=== PATIENT | male | born 1945 | race Caucasian/White ===

== ENCOUNTER 2020-08-05 10:19 | Outpatient (REF) | payer MEDICARE, SELFPAY ==
--- NOTE | 2020-08-05 | US_ITS ---
EXAMINATION: US EXTRACRANIAL CAROTID DUPLEX, BILATERAL CLINICAL INFORMATION: History of right carotid endarterectomy 4 years ago. History of hypertension and hyperlipidemia. COMPARISON: July 30, 2019 and July 18, 2018 TECHNIQUE: Real-time ultrasound and Doppler techniques (integrating B-mode 2-D vascular images, Doppler spectral analysis and color-flow Doppler imaging) were utilized to interrogate the extracranial carotid arteries, the vertebral arteries and proximal subclavian arteries bilaterally. The degree of stenosis is determined by criteria similar to NASCET. FINDINGS: Right Side: 1. There is bulky, moderate atherosclerotic plaque seen in the bifurcation/proximal ICA region. 2. The common carotid artery PSV proximally is 82 cm/s and distally 109 cm/s. 3. The proximal internal carotid artery velocities are 166 cm/s systolic and 28 cm/s diastolic. 4. The proximal external carotid artery PSV is 187 cm/s. 5. The vertebral artery shows antegrade flow. 6. The subclavian artery waveforms are normal. Left Side: 1. There is mild to moderate atherosclerotic plaque seen in the bifurcation/proximal ICA region. 2. The common carotid artery PSV proximally is 138 cm/s and distally 93 cm/s. 3. The proximal internal carotid artery velocities are 77 cm/s systolic and 50 cm/s diastolic. 4. The proximal external carotid artery PSV is 114 cm/s. 5. The vertebral artery shows antegrade flow. 6. The subclavian artery waveforms are normal. There are few, prominent, morphologically normal-appearing cervical lymph nodes identified. US/US carotid duplex BI IMPRESSION: 1. RIGHT: Moderate, hemodynamically significant stenosis of the proximal right internal carotid artery corresponding to a 50-79% stenosis by velocity criteria. 2. LEFT: Minimal, non-hemodynamically significant stenosis of the proximal left internal carotid artery corresponding to a 0-49% stenosis by velocity criteria. 3. Previously, the right internal carotid artery demonstrated minimal, nonhemodynamically significant stenosis corresponding to a 0-49% stenosis by velocity criteria.
== END 2020-08-05 10:20 | disposition home or self-care (01) ==
LOC: HO.US 10:19
PROVIDERS: PCP Internal Medicine; Visit Provider Surgery Vascular Surgery
DX: I65.23 Occlusion and stenosis of bilateral carotid arteries (principal)
CPT/HCPCS: 93880

== ENCOUNTER 2020-08-12 13:05 | Outpatient (REF) | payer MEDICARE, SELFPAY ==
[2020-08-12 15:46] LABS: PSA,Total (Free>4and<10) 2.66 ng/mL (0.00-4.00)
== END 2020-08-12 13:06 | disposition home or self-care (01) ==
LOC: HO.LAB 13:05
PROVIDERS: PCP Internal Medicine; Referring Provider Urology; Visit Provider Surgery Vascular Surgery
DX: Z87.898 Personal history of other specified conditions (principal); I65.23 Occlusion and stenosis of bilateral carotid arteries
CPT/HCPCS: 84153; 99212

== ENCOUNTER → 2020-11-11 09:36 | Outpatient (BNVA) | payer MEDICARE, SELFPAY | PROVIDERS: PCP Internal Medicine; Visit Provider Urology | DX: N40.0 Benign prostatic hyperplasia without lower urinary tract symptoms (principal); Z80.42 Family history of malignant neoplasm of prostate; Z87.898 Personal history of other specified conditions | CPT/HCPCS: Q3014 ==

== ENCOUNTER 2021-08-03 13:25 | Outpatient (REF) | payer MEDICARE, SELFPAY ==
--- NOTE | ~2021-08-03 | US_ITS ---
EXAMINATION: US EXTRACRANIAL CAROTID DUPLEX, BILATERAL CLINICAL INFORMATION: Carotid stenosis with history of right carotid endarterectomy 4 years ago. Hypertension and hyperlipidemia. COMPARISON: 08/05/2020. TECHNIQUE: Real-time ultrasound and Doppler techniques (integrating B-mode 2-D vascular images, Doppler spectral analysis and color-flow Doppler imaging) were utilized to interrogate the extracranial carotid arteries, the vertebral arteries and proximal subclavian arteries bilaterally. The degree of stenosis is determined by criteria similar to NASCET. FINDINGS: Right Side: 1. There is minimal atherosclerotic plaque seen in the bifurcation/proximal ICA region. Endarterectomy changes present. 2. The common carotid artery PSV proximally is 119 cm/s and distally 132 cm/s. 3. The proximal internal carotid artery velocities are 112 cm/s systolic and 28 cm/s diastolic. 4. The proximal external carotid artery PSV is 194 cm/s. 5. The vertebral artery shows antegrade flow. 6. The subclavian artery waveforms are normal. Left Side: 1. There is mild atherosclerotic plaque seen in the bifurcation/proximal ICA region. 2. The common carotid artery PSV proximally is 130 cm/s and distally 101 cm/s. 3. The proximal internal carotid artery velocities are 59 cm/s systolic and 19 cm/s diastolic. 4. The proximal external carotid artery PSV is 102 cm/s. 5. The vertebral artery shows antegrade flow. 6. The subclavian artery waveforms are normal. There are mildly prominent bilateral cervical lymph nodes which appear similar to the prior study. These have morphologically normal-appearing fatty latasha. US/US carotid duplex BI IMPRESSION: 1. RIGHT: Minimal, non-hemodynamically significant stenosis of the proximal right internal carotid artery corresponding to a 0-49% stenosis by velocity criteria. 2. LEFT: Minimal, non-hemodynamically significant stenosis of the proximal left internal carotid artery corresponding to a 0-49% stenosis by velocity criteria. 3. On the prior study, the right-sided disease was in the moderate 50-79% category by velocity criteria but now measures in the 0-49% category by velocity criteria..
== END 2021-08-03 13:26 | disposition home or self-care (01) ==
LOC: HO.US 13:25
PROVIDERS: PCP Internal Medicine; Visit Provider Surgery Vascular Surgery
DX: I65.23 Occlusion and stenosis of bilateral carotid arteries (principal)
CPT/HCPCS: 93880

== ENCOUNTER → 2021-08-11 10:51 | Outpatient (BNVA) | payer MEDICARE, SELFPAY | PROVIDERS: PCP Internal Medicine; Visit Provider Surgery Vascular Surgery | DX: I65.23 Occlusion and stenosis of bilateral carotid arteries (principal); G30.0 Alzheimer's disease with early onset; F02.80 Dementia in other diseases classified elsewhere, unspecified severity, without behavioral disturbance, psychotic disturbance, mood disturbance, and anxiety; R97.20 Elevated prostate specific antigen [PSA]; I10 Essential (primary) hypertension; E78.00 Pure hypercholesterolemia, unspecified; Z98.890 Other specified postprocedural states; Z95.5 Presence of coronary angioplasty implant and graft; Z95.1 Presence of aortocoronary bypass graft; Z88.6 Allergy status to analgesic agent | CPT/HCPCS: 99212 ==

== ENCOUNTER → 2021-11-11 10:40 | Outpatient (BNVA) | payer MEDICARE, SELFPAY | PROVIDERS: PCP Internal Medicine; Visit Provider Urology | DX: N40.0 Benign prostatic hyperplasia without lower urinary tract symptoms (principal); Z80.42 Family history of malignant neoplasm of prostate | CPT/HCPCS: Q3014 ==

== ENCOUNTER → 2022-05-10 08:12 | Outpatient (BNVA) | payer MEDICARE, SELFPAY | PROVIDERS: PCP Internal Medicine; Visit Provider Urology | DX: N40.0 Benign prostatic hyperplasia without lower urinary tract symptoms (principal); Z87.898 Personal history of other specified conditions | CPT/HCPCS: Q3014 ==

== ENCOUNTER 2022-08-10 | Outpatient (REF) | payer MEDICARE, SELFPAY ==
--- NOTE | ~2022-08-10 | US_ITS ---
EXAMINATION: US EXTRACRANIAL CAROTID DUPLEX, BILATERAL CLINICAL INFORMATION: Carotid stenosis, status post right endarterectomy COMPARISON: Carotid duplex on 08/03/2021 TECHNIQUE: Real-time ultrasound and Doppler techniques (integrating B-mode 2-D vascular images, Doppler spectral analysis and color-flow Doppler imaging) were utilized to interrogate the extracranial carotid arteries, the vertebral arteries and proximal subclavian arteries bilaterally. The degree of stenosis is determined by criteria similar to NASCET. FINDINGS: Right Side: 1. There is mild atherosclerotic plaque seen in the bifurcation/proximal ICA region. 2. The common carotid artery PSV proximally is 112 cm/s and distally 97 cm/s. 3. The proximal internal carotid artery velocities are 55 cm/s systolic and 15 cm/s diastolic. 4. The proximal external carotid artery PSV is 183 cm/s. 5. The vertebral artery shows antegrade flow. 6. The subclavian artery waveforms are normal. Left Side: 1. There is mild atherosclerotic plaque seen in the bifurcation/proximal ICA region. 2. The common carotid artery PSV proximally is 109 cm/s and distally 115 cm/s. 3. The proximal internal carotid artery velocities are 79 cm/s systolic and 28 cm/s diastolic. 4. The proximal external carotid artery PSV is 122 cm/s. 5. The vertebral artery shows antegrade flow. 6. The subclavian artery waveforms are normal. US/US carotid duplex BI IMPRESSION: 1. RIGHT: Minimal, non-hemodynamically significant stenosis of the proximal right internal carotid artery corresponding to a 0-49% stenosis by velocity criteria. 2. LEFT: Minimal, non-hemodynamically significant stenosis of the proximal left internal carotid artery corresponding to a 0-49% stenosis by velocity criteria. 3. There is no change in the category severity of disease when compared to the previous study dated 08/03/2021.
[2022-08-10 15:24] LABS: Appearance Urine Clear; Color Urine Yellow; Glucose Urine UA Negative (Negative); Leukocyte Esterase Urine Negative (Negative); Nitrite Urine Negative (Negative); Urine Blood Negative (Negative); Urine Ketones Negative (Negative); Urine Protein Negative (Neg-Trace)
[2022-08-10 15:36] LABS: Bacteria Urine None Seen (None Seen); Hyaline Casts Urine 0-2 /LPF (0-2); RBC Urine 0-2 /HPF (0-2); Squamous Epithelial Cell Urine 0-2 /HPF (0-2); WBC Urine 0-5 /HPF (0-5)
== END 2022-08-10 00:01 | disposition home or self-care (01) ==
LOC: HO.US
PROVIDERS: Absent Provider Urology; Visit Provider Surgery Vascular Surgery
DX: I65.23 Occlusion and stenosis of bilateral carotid arteries (principal); N40.0 Benign prostatic hyperplasia without lower urinary tract symptoms
CPT/HCPCS: 81001; 87086; 93880

== ENCOUNTER → 2022-09-19 13:12 | Outpatient (BNVA) | payer MEDICARE, SELFPAY | PROVIDERS: PCP Internal Medicine; Visit Provider Surgery Vascular Surgery | DX: I65.23 Occlusion and stenosis of bilateral carotid arteries (principal); I25.10 Atherosclerotic heart disease of native coronary artery without angina pectoris; I10 Essential (primary) hypertension; Z95.1 Presence of aortocoronary bypass graft; Z95.5 Presence of coronary angioplasty implant and graft; M54.50 Low back pain, unspecified; Z98.890 Other specified postprocedural states | CPT/HCPCS: 99212 ==

== ENCOUNTER 2023-05-10 10:41 | Outpatient (AMB) | payer MEDICARE, SELFPAY ==
--- NOTE | 2023-05-10 10:49 | MHC.OFFVIS ---
Intake Intake Visit Reasons: 1Y PSA(SET) Intake Note: Patient is present for Follow Up PSA/PVR Urology Med: Finasteride, Tamsulosin Antibiotic Allergy:none Blood Thinner: None PVR: 40ML Allergies acetaminophen [Percocet] Allergy (Unknown, Verified 05/10/23 10:58) acute urinary retention oxycodone [Percocet] Allergy (Unknown, Verified 05/10/23 10:58) acute urinary retention HPI HPI Comments History of Present Illness Details Moshe is a pleasant . He is a patient of Dr. Garcia. He is seen for following urologic conditions - lower urinary tract symptoms PSA remains low Appropriate voiding parameters Twelve month follow-up Lower urinary tract symptoms Followed with mild lower urinary tract symptoms Family history prostate cancer Prior PSA trend around 2.5-3 Prior prostate biopsy 2014 PSA 3.7 NAD PSA - 11/05 3.4, 04/05 1.9, 05/06 0.9 Therapeutic plan continue finasteride - every other day PFSH Medical History BPH (benign prostatic hyperplasia) BPH (benign prostatic hyperplasia) Coronary artery arteriosclerosis Early onset Alzheimer's dementia Elevated PSA Family history of prostate cancer H/O urinary retention History of elevated PSA Hypercholesteremia Hypertension Surgical History Compression fracture Femoral artery aneurysm H/O cervical discectomy H/O prostate biopsy History of CEA (carotid endarterectomy) (~2015) History of transurethral resection of prostate Hx of CABG Hx of colonoscopy Hx of laminectomy S/P angioplasty with stent Family History Father No problems noted. Mother No problems noted. Brother Cancer Brother No problems noted. Son No problems noted. Son No problems noted. Review of Systems Const Denies chills and Denies fever(s) Card Reports no additional complaints and Denies syncope Resp Denies cough GI Denies abdominal pain and Denies heartburn Reports as per HPI and Denies change in libido Neuro Denies syncope Psych Denies change in libido Endo Denies change in libido Physical Exam Const General: cooperative, healthy appearing, comfortable and no acute distress Orientation/consciousness: patient oriented x3 HEENT Face and sinus: Yes normal facial exam Mouth: moist mucous membranes Neck Neck: Yes normal visual inspection, Yes full ROM and Yes trachea midline Chest Chest palpation & inspection: normal inspection of the chest Resp Effort & Inspection: normal respiratory effort, able to speak in complete sentences and no respiratory distress GI Inspection: Yes normal to inspection Back/Spine/Pelvis Cervical Spine: normal cervical lordosis Thoracic/Lumbar Spine: thoracic and lumbar spine normal to inspection Skin General skin exam: no rashes or lesions noted Neuro General: patient oriented x3, gait normal, tone normal and moves all extremities Extrem General: Yes normal to inspection and Yes capillary refill normal Office Procedures Post Void Residual Post Residual Void Post Void Residual (PVR): [id number] Void Residual by ultrasound Results AMB Urinalysis, Automated UA Leukoctes 0 Dev/uL Last Edit by Yamel Goyal [facility] on 05/10/23 11:11 UA Nitrite Negative Last Edit by Yamel Goyal [facility] on 05/10/23 11:11 UA Urobilinogen 0.2 mg/dL Last Edit by Yamel Goyal [facility] on 05/10/23 11:11 UA Protein 0 mg/dL Last Edit by Yamel Goyal [facility] on 05/10/23 11:11 UA pH 5.0 Last Edit by Yamel Goyal [facility] on 05/10/23 11:11 UA Blood 0 Nathan/uL Last Edit by Yamel Goyal [facility] on 05/10/23 11:11 UA Specific Mcdowell 1.025 Last Edit by Yamel Goyal [facility] on 05/10/23 11:11 UA Ketone Negative Last Edit by Yamel Goyal [facility] on 05/10/23 11:11 UA Bilirubin 0 mg/dL Last Edit by Yamel Goyal [facility] on 05/10/23 11:11 UA Glucose 0 mg/dL Last Edit by Yamel Goyal [facility] on 05/10/23 11:11 Results Reviewed Results Reviewed: Laboratory Last Values Urine pH (Auto) 5.0 05/10/23 10:59 Specific Mcdowell (Auto) 1.025 05/10/23 10:59 Urine Protein (Auto) 0 mg/dL 05/10/23 10:59 Glucose (UA)(Auto) 0 mg/dL 05/10/23 10:59 Urine Ketones (Auto) Negative 05/10/23 10:59 Urine Blood (Auto) 0 Nathan/uL 05/10/23 10:59 Urine Nitrite (Auto) Negative 05/10/23 10:59 Urine Bilirubin (Auto) 0 mg/dL 05/10/23 10:59 Urine Urobilinogen (Auto) 0.2 mg/dL 05/10/23 10:59 Leukocyte Esterase (Auto) 0 Dev/uL 05/10/23 10:59 Assessment & Plan Assessment & Plan (1) BPH (benign prostatic hyperplasia): Code(s): N40.0 - Benign prostatic hyperplasia without lower urinary tract symptoms Plan 12 month follow-up Orders: Orders AMB Urinalysis Automated Today Z13.9 - Encounter for screening, unspecified AMB Post Void Residual by ultrasound Today N40.0 - Benign prostatic hyperplasia without lower urinary tract symptoms Patient Instructions: Imaging studies, laboratory and physical exam results were discussed and reviewed in detail. No major barriers to patient understanding were identified. An opportunity to ask questions regarding the treatment plan was provided. All questions were answered. The patient expressed understanding and agreement with the above treatment plan. The patient is aware they should contact our office by phone for worsening of their current condition or the appearance of new urologic symptoms. Compliance is encouraged with any medications and followup testing that is ordered. It is a privilege to participate in the urologic care of your patient. If you have any questions or concerns regarding treatment for the above conditions, or other urologic issues, please do not hesitate to contact me. The office telephone contact is [phone]. This note is constructed using voice recognition software. While every effort has been made to ensure accuracy lotteries agent errors may have been included. Yours sincerely, Dr Alli Leigh MD, [facility] - Urology Providers of Expert, Compassionate Care for the Genitourinary System Coding Level of Care Code Est Pt Level 3 (61143) Diagnoses BPH (benign prostatic hyperplasia) N40.0 CPT Codes Post Residual Void - PVR CPT Code: 95743-Kmbf Void Residual by ultrasound ([id number])
== END 2023-05-10 11:29 | disposition home or self-care (01) ==
PROVIDERS: Visit Provider Urology
DX: N40.0 Benign prostatic hyperplasia without lower urinary tract symptoms (principal)
CPT/HCPCS: 99213

== ENCOUNTER → 2023-05-10 10:41 | Outpatient (BNVA) | payer MEDICARE, SELFPAY | PROVIDERS: Visit Provider Urology | DX: N40.0 Benign prostatic hyperplasia without lower urinary tract symptoms (principal) | CPT/HCPCS: 51798; 99212 ==

== ENCOUNTER 2023-09-17 10:22 | Outpatient (REF) | payer MEDICARE, SELFPAY ==
--- NOTE | ~2023-09-17 | US_ITS ---
EXAMINATION: US EXTRACRANIAL CAROTID DUPLEX, BILATERAL CLINICAL INFORMATION: Carotid stenosis, status post right carotid endarterectomy COMPARISON: 08/10/2022 TECHNIQUE: Real-time ultrasound and Doppler techniques (integrating B-mode 2-D vascular images, Doppler spectral analysis and color-flow Doppler imaging) were utilized to interrogate the extracranial carotid arteries, the vertebral arteries and proximal subclavian arteries bilaterally. The degree of stenosis is determined by criteria similar to NASCET. FINDINGS: Right Side: 1. Postsurgical changes consistent with prior carotid endarterectomy. There is minimal atherosclerotic plaque seen in the bifurcation/proximal ICA region. 2. The common carotid artery PSV proximally is 85 cm/s and distally 67 cm/s. 3. The proximal internal carotid artery velocities are 47 cm/s systolic and 13 cm/s diastolic. 4. The proximal external carotid artery PSV is 162 cm/s. 5. The vertebral artery shows antegrade flow. 6. The subclavian artery waveforms are normal with mildly elevated velocity measuring 226 cm/s. Left Side: 1. There is mild to moderate atherosclerotic plaque seen in the bifurcation/proximal ICA region. 2. The common carotid artery PSV proximally is 132 cm/s and distally 124 cm/s. 3. The proximal internal carotid artery velocities are 55 cm/s systolic and 18 cm/s diastolic. 4. The proximal external carotid artery PSV is 125 cm/s. 5. The vertebral artery shows antegrade flow. 6. The subclavian artery waveforms are normal with elevated velocity measuring 248 cm/s. US/US carotid duplex BI IMPRESSION: 1. RIGHT: Minimal, non-hemodynamically significant stenosis of the proximal right internal carotid artery corresponding to a 0-49% stenosis by velocity criteria. Stable postsurgical changes consistent with prior carotid endarterectomy 2. LEFT: Minimal, non-hemodynamically significant stenosis of the proximal left internal carotid artery corresponding to a 0-49% stenosis by velocity criteria. 3. There is no change in the category severity of disease when compared to the previous study dated 08/10/2022 4. Elevated velocity seen in the bilateral subclavian arteries without reversal flow in the vertebral arteries. Cannot exclude underlying mild stenoses.
== END 2023-09-17 10:23 | disposition home or self-care (01) ==
LOC: HO.US 10:22
PROVIDERS: PCP Internal Medicine; Visit Provider Surgery Vascular Surgery
DX: I65.23 Occlusion and stenosis of bilateral carotid arteries (principal)
CPT/HCPCS: 93880

== ENCOUNTER 2023-10-11 14:32 | Outpatient (AMB) | payer MEDICARE, SELFPAY ==
--- NOTE | 2023-10-11 14:31 | MHC.OFFVIS ---
Intake Vital Signs 10/11/23 14:32 Height 5 ft 10 in Weight 185 lb BMI 26.5 BP 122/74 Blood Pressure Location Lt brachial Position Sitting Pulse 57 Pulse Source Pulse Oximeter Pulse Oximetry (%) 97 Oxygen Delivery Method Room Air Intake Visit Reasons: FU carotid US Intake Note: Pt presents to the office today for a F/U carotid US. Pt states he has been feeling okay. Pt states he gets occasional chest pain and is tired most of the time. Allergies acetaminophen [Percocet] Allergy (Unknown, Verified 10/11/23 14:37) acute urinary retention oxycodone [Percocet] Allergy (Unknown, Verified 10/11/23 14:37) acute urinary retention HPI FU carotid US HPI Details Very pleasant 77-year-old gentleman presents for routine surveillance regarding his carotids. He had undergone right carotid endarterectomy by me nearly 7 years ago at [facility]. He is asymptomatic in terms of his carotids. He continues to do fairly well but is now struggling a little bit with [employer] according to his . He does do large puzzles to keep himself active engaged. He appears to be doing fairly well otherwise. He now presents for follow-up with ultrasound testing. [facility] Medical History BPH (benign prostatic hyperplasia) History of elevated PSA Family history of prostate cancer Elevated PSA BPH (benign prostatic hyperplasia) H/O urinary retention Coronary artery arteriosclerosis Early onset Alzheimer's dementia Hypercholesteremia Hypertension Surgical History S/P angioplasty with stent Hx of colonoscopy Hx of CABG Femoral artery aneurysm Compression fracture Hx of laminectomy History of transurethral resection of prostate H/O cervical discectomy History of CEA (carotid endarterectomy) (~2015) H/O prostate biopsy Family History Father No problems noted. Mother No problems noted. Brother Cancer Brother No problems noted. Son No problems noted. Son No problems noted. Social History (Updated 10/11/23 @ 14:39 by Dyan Alvarez MA) Household Members: Spouse Housing: House Alcohol intake: current Alcohol intake frequency: holidays/special occasions only Alcohol type: beer and hard liquor Patient Tobacco Use Status: Former Tobacco user Use of substances other than those prescribed or required for medical reasons: No Review of Systems Const All systems reviewed & are unremarkable except as noted in HPI and below Reports no additional complaints ENT Reports Normal hearing present Card Denies chest pain, Denies chest pain at rest, Denies chest pain with activity and Denies pedal edema Resp Denies cough GI Denies abdominal pain Musc Denies abnormal gait, Denies muscle cramps and Denies radiating pain into limb Skin/Breast Denies skin ulcer and Denies wounds Neuro Reports Normal hearing present and Denies abnormal gait Psych Reports no additional complaints Physical Exam Vital Signs: Last Vital Signs Pulse 57 10/11/23 14:32 BP 122/74 10/11/23 14:32 Pulse Ox 97 10/11/23 14:32 Oxygen Delivery Method Room Air 10/11/23 14:32 BMI result Body Mass Index 26.5 Const General: cooperative, healthy appearing and comfortable Orientation/consciousness: oriented to person, oriented to place and oriented to time HEENT Head: Yes normal to inspection Neck Neck: Yes normal visual inspection Carotids: no bruits Chest Chest palpation & inspection: normal inspection of the chest Resp Effort & Inspection: normal respiratory effort and able to speak in complete sentences Auscultation: clear to auscultation bilaterally, no crackles, no rales, no rhonchi and no wheezes Cardio Rate: regular rate Rhythm: regular rhythm Heart sounds: S1 normal heart sound present and S2 normal heart sound present Bruits: no carotid bruits Peripheral pulses: Peripheral pulses 2+ throughout GI Inspection: Yes normal to inspection Skin Wounds: no wounds Hair: normal Neuro General: oriented to person, oriented to place and oriented to time Cranial nerves: Yes CN's II-XII intact bilaterally and Yes Normal hearing present Cognition (Neuro): normal cognition Motor exam (neuro): 5/5 motor strength present throughout Extrem Other: venous exam: No significant superficial varicosities or spider telangiectasias, minimal edema General: No clubbing, No cyanosis and No edema Psych Appearance: grossly normal Mental Status: mental status grossly normal Speech and movement: Normal speech and movement present Results Reviewed Results Reviewed: Carotid testing dated 09/17/2023 demonstrates bilateral 0-49% stenosis. Written report and images were reviewed. Assessment & Plan Assessment & Plan (1) Carotid stenosis: Comment: July 2016 - right carotid endarterectomy by Dr. Medina at [facility] Code(s): I65.29 - Occlusion and stenosis of unspecified carotid artery Qualifiers: Laterality: bilateral Qualified Code(s): I65.23 - Occlusion and stenosis of bilateral carotid arteries Plan: In short patient has asymptomatic carotid disease. We have reviewed signs and symptoms of a stroke. We also discussed risk factor modification inclusive a healthy diet low in cholesterol. The patient will follow up with us with surveillance ultrasound of the carotids 1 year. Should there be any changes or signs or symptoms of a stroke we will be happy to see them back sooner. Thank you for allowing us to participate in this patient's care. If there are any questions or concerns please do not hesitate to contact us. Orders: Orders US carotid duplex BI 364 Days I65.23 - Occlusion and stenosis of bilateral carotid arteries Coding Level of Care Code Est Pt Level 4 (67227) Diagnoses Bilateral carotid artery stenosis I65.23 Laterality: bilateral
[2023-10-11 14:32] VITALS: BP 122/74; PULSE 57; O2SAT 97; BMI 26.5
== END 2023-10-11 15:17 | disposition home or self-care (01) ==
PROVIDERS: PCP Internal Medicine; Visit Provider Surgery Vascular Surgery
DX: I65.23 Occlusion and stenosis of bilateral carotid arteries (principal)
CPT/HCPCS: 99213

== ENCOUNTER → 2023-10-11 14:32 | Outpatient (BNVA) | payer MEDICARE, SELFPAY | PROVIDERS: PCP Internal Medicine; Visit Provider Surgery Vascular Surgery | DX: I65.23 Occlusion and stenosis of bilateral carotid arteries (principal) | CPT/HCPCS: 99212 ==

== ENCOUNTER 2024-04-25 13:59 | Outpatient (REF) | payer MEDICARE, SELFPAY ==
[2024-04-25 16:07] LABS: Prostate Specific Antigen 2.08 ng/mL (<0.05-4.0)
== END 2024-04-25 14:00 | disposition home or self-care (01) ==
LOC: HO.LAB 13:59
PROVIDERS: PCP Internal Medicine; Visit Provider Urology
DX: N40.1 Benign prostatic hyperplasia with lower urinary tract symptoms (principal); N13.8 Other obstructive and reflux uropathy; Z12.5 Encounter for screening for malignant neoplasm of prostate
CPT/HCPCS: 36415; 84153

== ENCOUNTER 2024-05-06 10:21 | Outpatient (AMB) | payer MEDICARE, SELFPAY ==
--- NOTE | 2024-05-06 10:59 | A.OFFVIS_ITS ---
Intake Visit Reasons: 1Y PSA/PVR(set) Intake Note: Patient is present for Follow Up PSA/PVR Urology Med: Finasteride, Tamsulosin Antibiotic Allergy:none Blood Thinner: None PVR: 40ML today's PVR:0ml's Allergies acetaminophen [Percocet] Allergy (Unknown, Verified 05/06/24 11:00) acute urinary retention oxycodone [Percocet] Allergy (Unknown, Verified 05/06/24 11:00) acute urinary retention Medication List - Last Reconciled 05/06/24 by Alli Leigh MD atorvastatin 80 mg PO DAILY finasteride 5 mg PO DAILY 90 days flu vacc [id number](65yr up)-PF mL IM hydrochlorothiazide 25 mg PO DAILY hydrochlorothiazide 12.5 mg PO DAILY lisinopril 40 mg PO DAILY nitroglycerin 0.4 mg sublingual ranolazine ER mg PO sertraline 100 mg PO DAILY sertraline 50 mg PO DAILY HPI Comments Details: Moshe is a pleasant . He is a patient of Dr. Garcia. He is seen for following urologic conditions - lower urinary tract symptoms Twelve month follow-up Accompanied by PSA slight recovery to 2.1 since on finasteride every other day Appropriate voiding parameters Lower urinary tract symptoms Followed with mild lower urinary tract symptoms Family history prostate cancer Prior PSA trend around 2.5-3 Prior prostate biopsy 2014 PSA 3.7 NAD PSA - 11/05 3.4, 04/05 1.9, 05/06 0.9, 05/07 2.1 Therapeutic plan continue finasteride - every other day [facility] Medical History BPH (benign prostatic hyperplasia) History of elevated PSA Family history of prostate cancer Elevated PSA BPH (benign prostatic hyperplasia) H/O urinary retention Coronary artery arteriosclerosis Early onset Alzheimer's dementia Hypercholesteremia Hypertension Surgical History S/P angioplasty with stent Hx of colonoscopy Hx of CABG Femoral artery aneurysm Compression fracture Hx of laminectomy History of transurethral resection of prostate H/O cervical discectomy History of CEA (carotid endarterectomy) (~2015) H/O prostate biopsy Family History Father No problems noted. Mother No problems noted. Brother Cancer Brother No problems noted. Son No problems noted. Son No problems noted. Social History (Updated 10/11/23 @ 14:39 by Dyan Alvarez CMA) Household Members: Spouse Housing: House Alcohol intake: current Alcohol intake frequency: holidays/special occasions only Alcohol type: beer and hard liquor Patient Tobacco Use Status: Former Tobacco user Review of Systems Const Denies chills and Denies fever(s) Card Reports no additional complaints and Denies syncope Resp Denies cough GI Denies abdominal pain and Denies heartburn Reports as per HPI and Denies change in libido Neuro Denies syncope Psych Denies change in libido Endo Denies change in libido Physical Exam Const General: cooperative, healthy appearing, comfortable and no acute distress Orientation/consciousness: patient oriented x3 HEENT Face and sinus: Yes normal facial exam Mouth: moist mucous membranes Neck Neck: Yes normal visual inspection, Yes full ROM and Yes trachea midline Chest Chest palpation & inspection: normal inspection of the chest Resp Effort & Inspection: normal respiratory effort, able to speak in complete sentences and no respiratory distress GI Inspection: Yes normal to inspection Back/Spine/Pelvis Cervical Spine: normal cervical lordosis Thoracic/Lumbar Spine: thoracic and lumbar spine normal to inspection Skin General skin exam: no rashes or lesions noted Neuro General: patient oriented x3, gait normal, tone normal and moves all extremities Extrem General: Yes normal to inspection and Yes capillary refill normal Office Procedures Post Void Residual Post Residual Void Post Void Residual (PVR): 0 [id number] Void Residual by ultrasound Results AMB Urinalysis, Automated UA Leukoctes 0 Dev/uL Last Edit by THERESA Caldera on 05/06/24 11:07 UA Nitrite Negative Last Edit by THERESA Caldera on 05/06/24 11:07 UA Urobilinogen 0.2 mg/dL Last Edit by THERESA Caldera on 05/06/24 11:0 7 UA Protein 0 mg/dL Last Edit by THERESA Caldera on 05/06/24 11:07 UA pH 5.0 Last Edit by THERESA Caldera on 05/06/24 11:07 UA Blood 0 Nathan/uL Last Edit by THERESA Caldera on 05/06/24 11:07 UA Specific [place] 1.020 Last Edit by THERESA Caldera on 05/06/24 11: 07 UA Ketone Negative Last Edit by THERESA Caldera on 05/06/24 11:07 UA Bilirubin 0 mg/dL Last Edit by THERESA Caldera on 05/06/24 11:07 UA Glucose 0 mg/dL Last Edit by THERESA Caldera on 05/06/24 11:07 Results Reviewed Results Reviewed: Laboratory Last Values Urine pH (Auto) 5.0 05/06/24 11:06 Specific [place] (Auto) 1.020 05/06/24 11:06 Urine Protein (Auto) 0 mg/dL 05/06/24 11:06 Glucose (UA)(Auto) 0 mg/dL 05/06/24 11:06 Urine Ketones (Auto) Negative 05/06/24 11:06 Urine Blood (Auto) 0 Nathan/uL 05/06/24 11:06 Urine Nitrite (Auto) Negative 05/06/24 11:06 Urine Bilirubin (Auto) 0 mg/dL 05/06/24 11:06 Urine Urobilinogen (Auto) 0.2 mg/dL 05/06/24 11:06 Leukocyte Esterase (Auto) 0 Dev/uL 05/06/24 11:06 Assessment & Plan Assessment & Plan (1) BPH (benign prostatic hyperplasia): Code(s): N40.0 - Benign prostatic hyperplasia without lower urinary tract symptoms Category: Medical Plan Twelve month follow-up PSA Orders: Orders AMB Urinalysis Automated Today Z13.9 - Encounter for screening, unspecified Prostate Specific Antigen 364 Days N40.0 - Benign prostatic hyperplasia without lower urinary tract symptoms Medications: Discontinued tamsulosin Discontinued Reason: Patient Completed Course 0.4 mg PO DAILY 30 days 30 caps 0RF Patient Instructions: Imaging studies, laboratory and physical exam results were discussed and reviewed in detail. No major barriers to patient understanding were identified. An opportunity to ask questions regarding the treatment plan was provided. All questions were answered. The patient expressed understanding and agreement with the above treatment plan. The patient is aware they should contact our office by phone for worsening of t heir current condition or the appearance of new urologic symptoms. Compliance is encouraged with any medications and followup testing that is ordered. It is a privilege to participate in the urologic care of your patient. If you have any questions or concerns regarding treatment for the above conditions, or other urologic issues, please do not hesitate to contact me. The office telephone contact is [phone]. This note is constructed using voice recognition software. While every effort has been made to ensure accuracy credit clerk errors may have been included. Yours sincerely, Dr Alli Leigh MD, [facility] - Urology Providers of Expert, Compassionate Care for the Genitourinary System Coding Level of Care Code Est Pt Level 4 (90112) Diagnoses BPH (benign prostatic hyperplasia) N40.0 CPT Codes Post Residual Void - PVR CPT Code: 33512-Nmcy Void Residual by ultrasound ([id number])
== END 2024-05-06 11:21 | disposition home or self-care (01) ==
PROVIDERS: PCP Internal Medicine; Visit Provider Urology
DX: N40.0 Benign prostatic hyperplasia without lower urinary tract symptoms (principal); Z13.9 Encounter for screening, unspecified
CPT/HCPCS: 99214

== ENCOUNTER → 2024-05-06 10:21 | Outpatient (BNVA) | payer MEDICARE, SELFPAY | PROVIDERS: PCP Internal Medicine; Visit Provider Urology | DX: N40.0 Benign prostatic hyperplasia without lower urinary tract symptoms (principal) | CPT/HCPCS: 51798; 81003; 99212 ==

== ENCOUNTER 2024-09-23 10:50 | Outpatient (REF) | payer MEDICARE, SELFPAY ==
--- NOTE | ~2024-09-23 | US_ITS ---
EXAMINATION: US EXTRACRANIAL CAROTID DUPLEX, BILATERAL CLINICAL INFORMATION: Carotid stenosis COMPARISON: 09/17/2023 TECHNIQUE: Real-time ultrasound and Doppler techniques (integrating B-mode 2-D vascular images, Doppler spectral analysis and color-flow Doppler imaging) were utilized to interrogate the extracranial carotid arteries, the vertebral arteries and proximal subclavian arteries bilaterally. The degree of stenosis is determined by criteria similar to NASCET. FINDINGS: Right Side: 1. There is mild atherosclerotic plaque seen in the bifurcation/proximal ICA region. 2. The common carotid artery PSV proximally is 1:15 cm/s and distally 89 cm/s. 3. The proximal internal carotid artery velocities are 156 cm/s systolic and 38 cm/s diastolic. 4. The proximal external carotid artery PSV is 195 cm/s. 5. The vertebral artery shows antegrade flow. 6. The subclavian artery velocities are increased to 240 cm/s. Left Side: 1. There is mild atherosclerotic plaque seen in the bifurcation/proximal ICA region. 2. The common carotid artery PSV proximally is 118 cm/s and distally 102 cm/s. 3. The proximal internal carotid artery velocities are 53 cm/s systolic and 17 cm/s diastolic. 4. The proximal external carotid artery PSV is 118 cm/s. 5. The vertebral artery shows antegrade flow. 6. The subclavian artery velocities are increased at 278 cm/s US/US carotid duplex BI IMPRESSION: 1. RIGHT: Moderate, hemodynamically significant stenosis of the proximal right internal carotid artery corresponding to a 50-79% stenosis by velocity criteria. 2. LEFT: Minimal, non-hemodynamically significant stenosis of the proximal left internal carotid artery corresponding to a 0-49% stenosis by velocity criteria. 3. Since the prior study, velocities in the proximal right ICA has increased from 47 cm/s to 156 cm/s. Changing disease category to 50-79% from 0-49% Electronically signed by: Sandip Camarena MD 09/26/2024 01:15 AM EST
--- OUTSIDE RECORDS SUMMARY | 2024-09-24 20:26 | XMS_ITS ---
Author Name [facility] Organization Unknown History of Medication Use Medication Directions Dispensed Refills Start Date End Date Stat us finasteride (PROSCAR) 5 MG tablet Take 1 tablet (5 mg total) by mouth every other day. 05/15/2024 active raNOLazine (raNEXa) 500 MG 12 hr tablet Take 1 tablet (500 mg total) by mouth twice daily (every 12 hours). 05/15/2024 active Cholecalciferol (Vitamin D) 50 MCG (2000 UT) Cap Take by mouth daily. 05/15/2024 active lisinopril (PRINIVIL,ZeSTRIL) 40 MG tablet Take 1 tablet (40 mg total) by mouth. 05/15/2024 active sertraline (ZOLOFT) 50 MG tablet Take 3 tablets (150 mg total) by mouth daily. 05/15/2024 active atorvastatin (LIPITOR) 80 MG tablet Take 1 tablet (80 mg total) by mouth. 05/15/2024 active Alpha-Lipoic Acid 300 MG Cap Take by mouth daily. 05/15/2024 active Multiple Vitamin (multivitamin) capsule Take 1 capsule by mouth daily. 05/15/2024 active aspirin 81 MG chewable tablet Chew 1 tablet (81 mg total) daily. 05/15/2024 active UNABLE TO FIND Med Name: curamed daily 05/15/2024 active nitroglycerin (NITROSTAT) 0.[address] 1 TABLET UNDER TONGUE EVERY 5 MINS, UP TO 3 DOSES NEEDED FOR CHEST PAIN 05/15/2024 active folic acid (FOLVITE) 400 MCG tablet Take 1 tablet (400 mcg total) by mouth daily. 05/15/2024 active hydroCHLOROthiazide (HYDRODIURIL) 25 MG tablet Take 0.5 tablets (12.5 mg total) by mouth daily. 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
== END 2024-09-23 10:51 | disposition home or self-care (01) ==
LOC: HO.US 10:50
PROVIDERS: PCP Internal Medicine; Visit Provider Surgery Vascular Surgery
DX: I65.23 Occlusion and stenosis of bilateral carotid arteries (principal)
CPT/HCPCS: 93880

== ENCOUNTER 2024-10-14 15:06 | Outpatient (AMB) | payer MEDICARE, SELFPAY ==
[2024-10-14 15:11] VITALS: BP 120/68; BMI 25.8
--- NOTE | 2024-10-14 15:11 | A.OFFVIS_ITS ---
Vital Signs 10/14/24 15:11 10/14/24 15:18 Height 5 ft 10 in Weight 180 lb BMI 25.8 BP 120/68 122/60 Blood Pressure Location Rt brachial Lt brachial Position Sitting Sitting Intake Visit Reasons: 1yr follow up s/p Carotid US 09/23/24 Intake Note: 1 yr follow up carotid US 09/23/24 w/ hx of Right CEA @ [facility] (). Pt has no new complaints Route Cdl Driver Required: No Accompanied by: Spouse Allergies acetaminophen [Percocet] Allergy (Unknown, Verified 10/14/24 15:14) acute urinary retention oxycodone [Percocet] Allergy (Unknown, Verified 10/14/24 15:14) acute urinary retention HPI HPI 1yr follow up s/p Carotid US 09/23/24: Details: Very pleasant 78-year-old gentleman presents for routine surveillance follow-up regarding his carotids. Of known him for nearly 8 years now and appears to be doing fairly well. He most recently completed 4 months of physical therapy for stability and balance. Upon discussion with him it is clear that his Alzheimer's is slowly progressing but in general appears to be doing fairly well. He now presents for routine surveillance follow-up regarding his carotids. In terms of his carotids he is completely asymptomatic. He is on high-dose statin PFSH Medical History BPH (benign prostatic hyperplasia) History of elevated PSA Family history of prostate cancer Elevated PSA BPH (benign prostatic hyperplasia) H/O urinary retention Coronary artery arteriosclerosis Early onset Alzheimer's dementia Hypercholesteremia Hypertension Surgical History S/P angioplasty with stent Hx of colonoscopy Hx of CABG Femoral artery aneurysm Compression fracture Hx of laminectomy History of transurethral resection of prostate H/O cervical discectomy History of CEA (carotid endarterectomy) (~2015) H/O prostate biopsy Family History Father No problems noted. Mother No problems noted. Brother Cancer Brother No problems noted. Son No problems noted. Son No problems noted. Social History Household Members: Spouse Housing: House Alcohol intake: current Alcohol intake frequency: holidays/special occasions only Alcohol type: beer and hard liquor Patient Tobacco Use Status: Former Tobacco user Review of Systems Const All systems reviewed & are unremarkable except as noted in HPI and below Reports no additional complaints ENT Reports Normal hearing present Card Denies chest pain, Denies chest pain at rest, Denies chest pain with activity and Denies pedal edema Resp Denies cough GI Denies abdominal pain Musc Denies abnormal gait, Denies muscle cramps and Denies radiating pain into limb Skin/Breast Denies skin ulcer and Denies wounds Neuro Reports Normal hearing present and Denies abnormal gait Psych Reports no additional complaints Physical Exam Vital Signs: Last Vital Signs BP 122/60 10/14/24 15:18 BMI result Body Mass Index 25.8 Const General: cooperative, healthy appearing and comfortable Orientation/consciousness: oriented to person, oriented to place and oriented to time HEENT Head: Yes normal to inspection Neck Neck: Yes normal visual inspection Carotids: no bruits Chest Chest palpation & inspection: normal inspection of the chest Resp Effort & Inspection: normal respiratory effort and able to speak in complete sentences Auscultation: clear to auscultation bilaterally, no crackles, no rales, no rhonchi and no wheezes Cardio Rate: regular rate Rhythm: regular rhythm Heart sounds: S1 normal heart sound present and S2 normal heart sound present Bruits: no carotid bruits Peripheral pulses: Peripheral pulses 2+ throughout GI Inspection: Yes normal to inspection Skin Wounds: no wounds Hair: normal Neuro General: oriented to person, oriented to place and oriented to time Cranial nerves: Yes CN's II-XII intact bilaterally and Yes Normal hearing present Cognition (Neuro): normal cognition Motor exam (neuro): 5/5 motor strength present throughout Extrem Other: venous exam: No significant superficial varicosities or spider telangiectasias, minimal edema General: No clubbing, No cyanosis and No edema Psych Appearance: grossly normal Mental Status: mental status grossly normal Speech and movement: Normal speech and movement present Results Reviewed Results Reviewed: Carotid testing dated 09/23/2024 demonstrates right side 50-79% stenosis with a peak systolic of only 156 in the left of 0-49% stenosis. I do feel that the right is a bit of a roll over read when I reviewed it it does appear closer to 0-49% stenosis. Written report and images were reviewed Assessment & Plan Assessment & Plan (1) Carotid stenosis: Comment: July 2016 - right carotid endarterectomy by Dr. Medina at [facility] Code(s): I65.29 - Occlusion and stenosis of unspecified carotid artery Category: Medical Qualifiers: Laterality: bilateral Qualified Code(s): I65.23 - Occlusion and stenosis of bilateral carotid arteries Plan: In short patient has asymptomatic carotid disease. We have reviewed signs and symptoms of a stroke. We also discussed risk factor modification inclusive a healthy diet low in cholesterol. The patient will follow up with us with surveillance ultrasound of the carotids 1 year. Should there be any changes or signs or symptoms of a stroke we will be happy to see them back sooner. Thank you for allowing us to participate in this patient's care. If there are any questions or concerns please do not hesitate to contact us. Orders: Orders US carotid duplex BI 1 Year I65.23 - Occlusion and stenosis of bilateral [place] arteries Coding Level of Care Code Est Pt Level 4 (81643) Complex EM visit Add On G2211 Diagnoses Bilateral carotid artery stenosis I65.23 Laterality: bilateral
[2024-10-14 15:18] VITALS: BP 122/60
== END 2024-10-14 15:39 | disposition home or self-care (01) ==
PROVIDERS: PCP Internal Medicine; Visit Provider Surgery Vascular Surgery
DX: I65.23 Occlusion and stenosis of bilateral carotid arteries (principal)
CPT/HCPCS: 99214; G2211

== ENCOUNTER → 2024-10-14 15:06 | Outpatient (BNVA) | payer MEDICARE, SELFPAY | PROVIDERS: PCP Internal Medicine; Visit Provider Surgery Vascular Surgery | DX: I65.23 Occlusion and stenosis of bilateral carotid arteries (principal) | CPT/HCPCS: 99212 ==

== ENCOUNTER 2025-04-30 12:04 | Outpatient (REF) | payer MEDICARE, SELFPAY ==
--- OUTSIDE RECORDS SUMMARY | 2025-01-12 10:30 | XMS_ITS | Encounter Summary ---
Author Name [facility] [place] Organization [facility] Address [address] [place] [id number] Support Name Relationship Address Phone FAUSTINA MONACO Next of Kin [address] [place] [address] FAUSTINA MONACO Emergency Contact [address] Cheryl [place] [phone] Insurance Providers: All historical and current Section Date Range: From patient's date of to the date document was created. This section includes the names of all active insurance providers for the patient. Insurance Provider Type of Coverage Plan Name Start of Policy Coverage End of Policy Coverage Group Number Member ID Insurance Provider's Telephone Number Policy Bauer's Name Patient's Relationship to Policy Bauer [facility] PL[facility] M[facility] (WNR) MEDICARE ADVANTAGE [facility] (WNR) Oct 15, 2016 [facility] [id number] ASPEN MONACO PATIENT Selected Encounter This section includes the information on record at [place] for the Encounter. Date/Time Encounter Type Encounter Description Reason Provider Source Jan 12, 2025 02:30 PM OFFICE O/P EST MOD 30 MIN PRIMARY CARE/MEDICINE ICD-10-CM I25.10 [facility] heart disease of pala coronary artery w/o FRANCO Cruz Encounter Template Text not used by [place] Assessments - Encounter Diagnoses This section includes the primary and secondary diagnoses documented for the Encounter. Date/Time Primary/Secondary Diagnosis Diagnosis Name Provider Source Jan 12, 2025 03:13 PM PRIMARY [facility] heart disease of pala coronary artery w/o FRANCO Cruz Jan 12, 2025 03:13 PM SECONDARY Chronic kidney disease, stage 3 unspecified FRANCO MAYO Jan 12, 2025 03:13 PM SECONDARY Pure hypercholesterolemi a, unspecified FRANCO MAYO Vital Signs: All taken on the encounter date This section contains inpatient and outpatient Vital Signs collected on the date of the Encounter. Date/Time Temperature Pulse Blood Pressure Respiratory Rate SP02 Pain Height Weight Body Mass Index Source Jan 12, 2025 03:15 PM 122/72 [facility] [place] Jan 12, 2025 02:23 PM 98 59 167/65 19 96 67 181 28 [facility] [place] Social History: Smoking Status (Most current) and Tobacco Use (All prior to encounter date) This section includes the most current, and the historical, smoking and tobacco- related health factors from the [place] facility where the Encounter took place. Current Smoking Status This section includes the most current smoking, or tobacco-related health factor, from the [place] facility where the Encounter took place. Date/Time Current Smoking Status Comment Facil ity Mar 23, 2011 02:30 PM QUIT TOBACCO USE > 7 YEARS AGO Pt. quit when he had an [facility] in 1986!! [place] Advance Directives: All historical and current Section Date Range: From patient's date of to the date document was created. This section includes ALL of a patient's completed or amended VA Advance and Rescinded Directives. The entries below indicate that a directive exists for the patient, but an actual copy is not included with this document. The data comes from all [place] facilities. Date Advance Directives Provider Source Jan 12, 2025 ADVANCE DIRECTIVE JORGE LUIS DAMON Apr 24, 2011 ADVANCE DIRECTIVE RA YANG [facility] Encounter Notes: All associated encounter notes This section contains the clinical notes associated to the Encounter. Date/Time Encounter Note(s) Provider Source Jan 12, 2025 02:12 PM PHYSICIAN ASSISTAN T NOTE: LOCAL TITLE: PA NOTE STANDARD TITLE: PHYSICIAN DEPOT MANAGER NOTE DATE OF NOTE: JAN 12, 2025@14:12 ENTRY DATE: JAN 12, 2025@14:12:58 AUTHOR: FRACNO MAYO EXP COSIGNER: URGENCY: STATUS: COMPLETED S - here to get back in the va system was established yrs ago now, he has dementia appeals to the va in case he needs help at home in the future O - coop A&Ox3 NAD W-N/H/D HEENT: benign NECK: supple mobile no bruits not tender and no adeno LUNGS: resp full reg unlabored; CTA b/l COR: RRR, no M ABD: soft, not tender no peritonral signs EXT: no LLE LABS: none now, but not needed A/P - 1) CAD and s/p CABG's and Stents 2) Hypercholesterolemia - on ASA - on Lipitor - on Ranolazine - has Nitro for prn use (seldom needed) 3) HTN - BP 122/72 4) CKD, Stage 3; Stable as of 2024 - on HCTZ - on Zestril - still sees Nephro as of 2024 5) BPH - no Meds 6) Alzheimers - on Zoloft and Mirtazapine - may need Home Health Aides later RTC JAN 07 - no labs before (bring copy private labs) Medication Reconciliation: Outpatient: Has the patient been taking medications as documented in the EMLR? YES: The patient has been taking medications as documented in the EMLR. Essential Medication List for Review used to complete this medication reconciliation. INCLUDED IN THIS LIST: Alphabetical list of active outpatient prescriptions dispensed from this [place] (local) and dispensed from another [place] or [facility] facility (remote) as well as inpatient orders (local, pending and active), local clinic medications, locally documented non-VA medications, and local prescriptions that have or been discontinued in the past 90 days. - All changes in medications, including all non-VA/Herbal/OTC medications were entered into CPRS. Changes: nt - If there were any medications the patient should no longer take, they were discontinued. - The patient/caregiver was instructed to update this list, discard old lists, and take this list to the next appointment, whether with a VA or non-VA provider. /marija/ FRANCO MAYO PA-C STAFF PHYSICIAN DEPOT MANAGER Signed: 01/12/2025 15:16 FRANCO MAYO
--- OUTSIDE RECORDS SUMMARY | 2025-04-30 12:44 | XMS_ITS | Encounter Summary ---
Author Organization [facility] Address [address] [place] [address] Care Team Providers Care Heel Builder Machine Name Role Phone Mirtha Garcia MD Primary Care Provider [phone] Encounter Details Date Type Department Care Team (Late st Contact Info) Description 09/30/2024 Scanned Document [facility] Neurology [address] [id number] Neurology, Scan Social History Tobacco Use Types Packs/Day Years Used Date Smoking Tobacco: Former Cigarettes Alcohol Use Standard Drinks/Week Comments Yes 0 (1 standard drink = 0.6 oz pur e alcohol) PHQ-2 Answer Date Recorded PHQ-2 Total Score 2 05/13/2024 Sex and Gender Information Value Date Recorded Sex Assigned at Male 05/20/2024 11:33 AM EDT Legal Sex Male 6:32 PM EST Gender Identity Male 05/20/2024 11:33 AM EDT Sexual Orientation Not on file documented as of this encounter Plan of Treatment Not on file documented as of this encounter Visit Diagnoses Not on filedocumented in this encounter Care Teams Heel Builder Machine Relationship Specialty Start Date End Date Mirtha Garcia MD [address] [facility] [address] [place] [address] PCP - General Internal Medicine 12/26/23 documented as of this encounter
--- OUTSIDE RECORDS SUMMARY | 2025-04-30 12:44 | XMS_ITS | Encounter Summary ---
Author Organization [facility] Address [address] [place] [address] Phone Care Team Providers Care Photo Engraver Name Role Phone Mirtha Garcia MD Primary Care Provider + [phone] Encounter Details Date Type Department Care Team (Late st Contact Info) Description 03/22/2021 Orders Only [facility] [address] [place] [id number] Loki Matt MD [id number] [facility] [address] [place] [phone] Coronary arteriosclerosis, not otherwise specified; Benign prostatic hyperplasia; Hypertensive chronic kidney disease stage 3 Social History Tobacco Use Types Packs/Day Years Used Date Smoking Tobacco: Former Cigarettes Q uit: 10/15/1986 Smokeless Tobacco: Never Alcohol Use Standard Drinks/Week Comments Defer 0 (1 standard drink = 0.6 oz pur e alcohol) Sex and Gender Information Value Date Recorded Sex Assigned at Not on file Legal Sex Male 1:53 PM EST Gender Identity Not on file Sexual Orientation Not on file documented as of this encounter Progress Notes * Patricia Hargrove MA - 03/22/2021 11:59 PM EDT Pt advised and mailed out low K food list documented in this encounter Plan of Treatment Upcoming Encounters Date Type Department Care Team (Late st Contact Info) Description 12/17/2025 1:00 PM EST Office Visit [facility] [place] [address] [place] [phone] Loki Matt MD [address] [facility] [facility] [address] [place] [address] documented as of this encounter Procedures Procedure Name Priority Date/Time Associated Diagnosis Comments PROTEIN / CREATININE RATIO, URINE Routine 03/17/2021 2:20 PM EDT Coronary arteriosclerosis, not otherwise specified Benign prostatic hyperplasia Hypertensive chronic kidney disease stage 3 VITAMIN D 25 HYDROXY Routine 03/17/2021 2:20 PM EDT Coronary arteriosclerosis, not otherwise specified Benign prostatic hyperplasia Hypertensive chronic kidney disease stage 3 PROTEIN ELECTROPHORESIS, SERUM Routine 03/17/2021 2:20 PM EDT Coronary arteriosclerosis, not otherwise specified Benign prostatic hyperplasia Hypertensive chronic kidney disease stage 3 PTH, INTACT Routine 03/17/2021 2:20 PM EDT Coronary arteriosclerosis, not otherwise specified Benign prostatic hyperplasia Hypertensive chronic kidney disease stage 3 RENAL FUNCTION PANEL Routine 03/17/2021 2:20 PM EDT Coronary arteriosclerosis, not otherwise specified Benign prostatic hyperplasia Hypertensive chronic kidney disease stage 3 documented in this encounter Results * (ABNORMAL) Protein electrophoresis, serum (03/17/2021 2:20 PM EDT) Pathologist [facility] Protein, Total 6.7 (6.2-8.2) GM/DL [facility] Albumin 3.9 (3.1-4.8) GM/DL [facility] Alpha 1 Globulin % 0.1(L) (0.2-0.4) GM/DL [facility] Alpha 2 0.7 (0.6-0.9) GM/DL [facility] Beta 0.9 (0.9-1.3) GM/DL [facility] Gamma Globulin in Serum 1.1 (0.6-1.8) GM/DL [facility] Comment: Pattern is non-specific. No apparent monoclonal protein in serum protein electrophoresis. Interpreted by Emily Barrios MD Testing performed or reported by [facility], a Service of [facility], [address] [place] [id number] Ashli Mirza MD, Paper Coating Machine Operator Blood specimen (specimen) Venous blood / Unknown 03/17/2021 2:20 PM EDT 03/17/2021 2:21 PM EDT us Loki Matt MD LAB BLOOD ORDERABLES Final Resu lt [facility] * (ABNORMAL) Renal function panel (03/17/2021 2:20 PM EDT) Pathologist [facility] Glucose 101(H) (70-99) MG/DL [facility] BUN 24(H) (8-23) MG/DL [facility] Creatinine 1.4(H) (0.7-1.2) MG/DL [facility] Sodium 142 (133-145) MMOL/L [facility] Potassium 5.4(H) (3.6-5.2) MMOL/L [facility] Chloride 102 (98-107) MMOL/L [facility] Bicarbonate (CO2) 32(H) (22-29) MMOL/L [facility] Anion Gap 8 (4-17) [facility] Albumin 4.3 (3.4-4.8) GM/DL [facility] Calcium 9.5 (8.6-10.5) MG/DL [facility] Phosphorus, Serum 3.9 (2.5-4.5) MG/DL [facility] Est GFR Non 50 ML/MIN/1.7 3 M2 [facility] Comment: Creatinine based estimated glomerular filtration rate (eGFR) is calculated using the Chronic Kidney Disease Epidemiology Collaboration (CKD-EPI). The CKD-EPI creatinine equation has not been validated in children (<18 years), women or in some racial or ethnic subgroups other than Caucasians and Americans. EST GFR 58 ML/MIN/1.7 3 M2 [facility] Comment: Creatinine based estimated glomerular filtration rate (eGFR) is calculated using the Chronic Kidney Disease Epidemiology Collaboration (CKD-EPI). The CKD-EPI creatinine equation has not been validated in children (<18 years), women or in some racial or ethnic subgroups other than Caucasians and Americans. Testing performed or reported by [facility], a Service of [facility], [address] [place] [id number] Ashli Mirza MD, Paper Coating Machine Operator Blood specimen (specimen) Venous blood / Unknown 03/17/2021 2:20 PM EDT 03/17/2021 2:21 PM EDT Result [facility] Loki Matt MD LAB BLOOD ORDERABLES Final Resu lt Performing Organization Address City/[facility]/ZIP Co de Phone Number [facility] * Vitamin D 25 hydroxy (03/17/2021 2:20 PM EDT) Pathologist [facility] Vitamin D, 25-Hydroxy 42.1 (20-50) NG/ML [facility] Comment: Testing performed or reported by [facility], a Service of [address] [id number] Ashli Mirza MD, Paper Coating Machine Operator Blood specimen (specimen) Venous blood / Unknown 03/17/2021 2:20 PM EDT 03/17/2021 2:21 PM EDT Result [facility] Loki Matt MD LAB BLOOD ORDERABLES Final Resu lt Performing Organization Address [facility] de Phone Number [facility] * Urine Protein / creatinine ratio (03/17/2021 2:20 PM EDT) [facility] Protein/Creatin e Ratio 0.07 (0-0.2) [facility] Protein, Urine 8 MG/DL [facility] Creatinine, Urine 116.3 MG/DL [facility] Comment: Testing performed or reported by [facility], a Service of [facility], [address] [place] [id number] Ashli Mirza MD, Paper Coating Machine Operator Urine specimen (specimen) Urine specimen obtained by clean catch procedure / Unknown 03/17/2021 2:20 PM EDT 03/17/2021 2:21 PM EDT Result [facility] Loki Matt MD LAB URINE ORDERABLES Final Resu lt Performing Organization Address City/[facility]/ZIP Co de Phone Number [facility] * PTH, intact (03/17/2021 2:20 PM EDT) Pathologist [facility] PTH, Intact 35 (15-65) PG/ML [facility] Comment: Testing performed or reported by [facility], a Service of [facility], [address] [place] [id number] Ashli Mirza MD, Paper Coating Machine Operator Blood specimen (specimen) Venous blood / Unknown 03/17/2021 2:20 PM EDT 03/17/2021 2:21 PM EDT us Loki Matt MD LAB BLOOD ORDERABLES Final Resu lt [facility] documented in this encounter Visit Diagnoses Diagnosis Coronary arteriosclerosis, not otherwise specified Benign prostatic hyperplasia Hypertensive chronic kidney disease stage 3 documented in this encounter Care Teams Photo Engraver Relationship Specialty Start Date End Date Mirtha Garcia MD [address] [place] [id number] PCP - General Internal Medicine 12/21/20 documented as of this encounter
--- OUTSIDE RECORDS SUMMARY | 2025-04-30 12:45 | XMS_ITS ---
Author Name [facility] Organization Unknown History of Medication Use Medication Directions Dispensed Refills Start Date End Date Stat us Alpha-Lipoic Acid 300 MG Cap Take by mouth daily. active atorvastatin (LIPITOR) 80 MG tablet Take 1 tablet (80 mg total) by mouth. active raNOLazine (raNEXa) 500 MG 12 hr tablet Take 1 tablet (500 mg total) by mouth twice daily (every 12 hours). active sertraline (ZOLOFT) 50 MG tablet Take 3 tablets (150 mg total) by mouth daily. 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 Care Team Organization Name Specialty Phone Email Start Date End Da te Pairin [facility] 05/13/2024 12/31/2024 [facility] Primary Care 12/26/2023
[2025-04-30 13:48] LABS: Prostate Specific Antigen 1.39 ng/mL (<0.05-4.0)
== END 2025-04-30 12:05 | disposition home or self-care (01) ==
LOC: HO.LAB 12:04
PROVIDERS: PCP Internal Medicine; Visit Provider Urology
DX: N40.0 Benign prostatic hyperplasia without lower urinary tract symptoms (principal)
CPT/HCPCS: 36415; 84153